=== PATIENT | male | born 1975 | race Caucasian/White ===

== ENCOUNTER → 2017-01-22 | Outpatient (CLI) | payer BC ==
[2017-01-22 13:02] LABS: HEMATOCRIT 46.8 % (39.2-51.8)
[2017-01-22 13:12] LABS: BLOOD UREA NITROGEN 12 mg/dL (7-18)
[2017-01-22 13:25] LABS: ASPARTATE AMINO TRANSFERASE 26 U/L (15-37); PROSTATE SPECIFIC ANTIGEN 0.57 ng/mL (0.00-4.00)
== END | disposition home or self-care (01) ==
LOC: LAB 09:28
PROVIDERS: ATTEND Nurse Practitioner Primary Care
DX: Z00.01 Encounter for general adult medical examination with abnormal findings (principal); Z13.220 Encounter for screening for lipoid disorders; Z12.5 Encounter for screening for malignant neoplasm of prostate; E55.9 Vitamin D deficiency, unspecified; E78.2 Mixed hyperlipidemia; E03.9 Hypothyroidism, unspecified; R53.83 Other fatigue; R59.0 Localized enlarged lymph nodes; G47.30 Sleep apnea, unspecified; G89.29 Other chronic pain; J01.90 Acute sinusitis, unspecified; Z87.442 Personal history of urinary calculi
CPT/HCPCS: 36415; 80053; 80061; 81003; 82306; 84153; 84402; 84403; 84443; 84550; 85025